=== PATIENT | male | born 1940 | race Caucasian/White ===

== ENCOUNTER 2016-12-04 05:39 | Day surgery (SDC) | payer MEDICARE, OTHER ==
[2016-12-04] MEDS ORDERED: TROP 1%/CYCLOPEN 1%/PHENYL 2% DROPS ONE (10:54)
[2016-12-04] MEDS: PROPARACAINE 0.5% OPHTH SOL 15 ML BTTL ONE ×3 (10:58→11:10)
[2016-12-04] MEDS: TOBRAMYCIN SULF 0.3 % OPHT SOL 1 DROP LEFT_EYE ONE ×2 (10:59→11:33)
[2016-12-04] MEDS ORDERED: MIDAZOLAM INJ 5 MG/5 ML VIAL ONE (11:01)
[2016-12-04] MEDS ORDERED: LIDOCAINE 1% PF 2 ML AMP INJ ONE (11:14)
[2016-12-04] MEDS ORDERED: DEXAMETHASONE 0.1% OPHTH SOL 1 DROP LEFT_EYE ONE (11:33)
[2016-12-04] MEDS ORDERED: BRIMONIDINE 0.2% OPHTH DROPS LEFT_EYE ONE (11:33)
[2016-12-04 15:42] VITALS: BP 181/80; TEMP 97.9; O2SAT 100
== END 2016-12-04 12:00 | disposition home or self-care (01) ==
LOC: AMB 05:39
PROVIDERS: ATTEND Ophthalmology
DX: H25.12 Age-related nuclear cataract, left eye (principal)
CPT/HCPCS: 66984; J2250

== ENCOUNTER 2016-12-14 05:48 | Day surgery (SDC) | payer MEDICARE, OTHER ==
[2016-12-14] MEDS ORDERED: MIDAZOLAM INJ 5 MG/5 ML VIAL ONE (08:46)
[2016-12-14] MEDS ORDERED: LIDOCAINE 1% PF 2 ML AMP INJ ONE (12:00)
[2016-12-14] MEDS: PROPARACAINE 0.5% OPHTH SOL 15 ML BTTL ONE ×2 (12:24→12:53)
[2016-12-14] MEDS: TOBRAMYCIN SULF 0.3 % OPHT SOL 1 DROP RIGHT_EYE ONE ×2 (12:25→13:11)
[2016-12-14] MEDS ORDERED: PROPARACAINE 0.5% OPHTH SOL 15 ML BTTL ONE (12:36)
[2016-12-14] MEDS ORDERED: TROP 1%/CYCLOPEN 1%/PHENYL 2% DROPS ONE (12:36)
[2016-12-14] MEDS ORDERED: PROPARACAINE 0.5% OPHTH SOL 15 ML BTTL RIGHT_EYE ONE (13:00)
[2016-12-14] MEDS ORDERED: DEXAMETHASONE 0.1% OPHTH SOL 1 DROP RIGHT_EYE ONE ×2 (13:12→13:31)
[2016-12-14] MEDS ORDERED: BRIMONIDINE 0.2% OPHTH DROPS RIGHT_EYE ONE ×2 (13:13→13:31)
[2016-12-14 13:26] VITALS: O2SAT 99
[2016-12-14 14:35] VITALS: BP 175/78; TEMP 98.6
== END 2016-12-14 14:10 | disposition home or self-care (01) ==
LOC: AMB 05:48
PROVIDERS: ATTEND Ophthalmology
DX: H25.11 Age-related nuclear cataract, right eye (principal); I10 Essential (primary) hypertension; E78.5 Hyperlipidemia, unspecified; Z79.899 Other long term (current) drug therapy
CPT/HCPCS: 66984; J2250

== ENCOUNTER → 2016-12-29 | Outpatient (CLI) | payer MEDICARE, OTHER | END | disposition home or self-care (01) | LOC: GMAJ 10:45 | PROVIDERS: ATTEND Family Medicine | DX: Z12.5 Encounter for screening for malignant neoplasm of prostate (principal) ==

== ENCOUNTER → 2017-07-25 | Outpatient (CLI) | payer MEDICARE, MEDICAID | LOC: LAB.O 13:33 | PROVIDERS: ATTEND Urology | DX: R97.20 Elevated prostate specific antigen [PSA] (principal) ==

== ENCOUNTER → 2017-08-22 | Outpatient (CLI) | payer MEDICARE, MEDICAID ==
--- NOTE | 2017-08-23 09:07 | US ---
EXAM DESCRIPTION: Extremity,Lower Ronal Arteries: Ultrasound. CLINICAL HISTORY: ATHEROSCLEROSIS OF [place] ARTERIES OF EXTREMITIES COMPARISON: None. TECHNIQUE: Doppler evaluation of the bilateral lower extremity arterial flow waveforms and velocities. FINDINGS: Arterial waveforms in the right lower extremity are triphasic in the right common femoral artery. Biphasic from the right femoral artery to the right peroneal artery. Dampened monophasic waveform in the right dorsalis pedis artery. No waveform with trace flow in the right posterior tibial artery.. Arterial waveforms in the left lower extremity are triphasic in the left common femoral artery. Biphasic in the left femoral artery and the popliteal artery. Monophasic in the left peroneal artery with dampening. Biphasic waveform in the left dorsalis pedis artery. No waveform and trace flow in the left posterior tibial artery... Comments: Velocities are symmetric down to the peroneal artery which is significantly decreased on the left. Left dorsalis pedis artery velocity is twice the value of the right artery. No measurable velocity in the bilateral posterior tibial arteries. IMPRESSION: Significant bilateral atherosclerotic occlusive disease primarily affecting the left peroneal and posterior tibial arteries and the right posterior tibial and dorsalis pedis arteries. No significantly elevated velocity indicating proximal high-grade stenosis is seen. Electronically signed by: Damián Jonas MD 08/23/2017 9:06 AM CDT
== END ==
LOC: US 09:00
PROVIDERS: ATTEND Family Medicine
DX: I70.202 Unspecified atherosclerosis of native arteries of extremities, left leg (principal)

== ENCOUNTER → 2018-01-29 | Outpatient (CLI) | payer MEDICARE, MEDICAID | LOC: GMAJ 10:35 | PROVIDERS: ATTEND Family Medicine | DX: Z12.5 Encounter for screening for malignant neoplasm of prostate (principal) ==

== ENCOUNTER 2018-11-08 05:43 | Day surgery (SDC) | payer MEDICARE, MEDICAID ==
[2018-11-08] MEDS ORDERED: LACTATED RINGERS 1,000 ML ONE (06:54)
--- NOTE | 2018-11-08 09:46 | OP ---
DATE OF PROCEDURE: 11/08/18 PREOPERATIVE DIAGNOSIS: 1. Blood in stool. No history of colonoscopy. POSTOPERATIVE DIAGNOSIS: 1. Colonic polyps times 4. PROCEDURE: 1. Colonoscopy with biopsies times 4. SURGEON: Nima Goodman MD ANESTHESIA: General. FINDINGS: There were 4 polyps, proximal transverse, distal transverse, near the hepatic flexure, probably mid to descending and at the rectosigmoid junction was the most substantial small, approximately 3.5 mm adenomatous polyp. COMPLICATIONS: None. ESTIMATED BLOOD LOSS : None. CONDITION: Stable. PLAN: Discharge. INDICATION: The patient presented to the outpatient clinic. He had never had a colonoscopy, but had a heme positive stool. He was evaluated and felt to be a good candidate with no contraindications for colonoscopy. PROCEDURE: He was consented today and brought to the Procedure Suite in the lateral position. He was made comfortable. IV general anesthesia was given with monitoring. Digital rectal exam was normal, but decreased sphincter tone. The colonoscope was then passed with minimal difficulty to the cecum which was documented by the appendiceal orifice and photos. Upon withdrawal, there were no large blood causing tumors identified. In the proximal transverse, a small polyp was noted. It was removed completely with forceps as well as one in the distal transverse. Two separate bites completely removed. There was a similar polyp in the proximal descending and at the rectosigmoid junction, a polyp that we had seen going in and now re-encountered coming out. It was a little bit larger and appeared to be an adenomatous polyp. This was excised with a hot snare and confirmed retrieval. The remainder of the exam was normal. The distal rectum appeared normal on retroflexion. Again, diminished sphincter tone, but some tone. He tolerated the procedure. He was then awakened and taken to Recovery to be discharged. #[id number] cc: Nima Shipman MD [facility]
[2018-11-08] MEDS ORDERED: LIDOCAINE 1% 10 ML VIAL INJ ONE (10:00)
[2018-11-08] MEDS ORDERED: PROPOFOL 200 MG/20 ML VIAL IV ONE (10:00)
[2018-11-08 10:06] VITALS: BP 145/79; TEMP 97.9; O2SAT 98
== END 2018-11-08 10:05 | disposition home or self-care (01) ==
LOC: AMB 05:43
PROVIDERS: ATTEND Surgery
DX: R19.5 Other fecal abnormalities (principal); D12.3 Benign neoplasm of transverse colon; K63.5 Polyp of colon; I10 Essential (primary) hypertension; E78.00 Pure hypercholesterolemia, unspecified; G89.29 Other chronic pain; M54.5 Low back pain; Z87.891 Personal history of nicotine dependence; Z79.82 Long term (current) use of aspirin; Z79.899 Other long term (current) drug therapy
CPT/HCPCS: 00811; 45380; 45385; 88305; J3490; J7120

== ENCOUNTER → 2019-01-15 | Outpatient (CLI) | payer MEDICARE, MEDICAID ==
--- NOTE | 2019-01-15 21:01 | US ---
EXAM DESCRIPTION: Carotid Duplex: ULTRASOUND. CLINICAL HISTORY: 78 years Male CAROTID ARTERY SYNDROME,(HEMISPHERIC) COMPARISON: None. TECHNIQUE: Transcutaneous scanning utilizing beebe-scale and Doppler modes to evaluate the bilateral carotid systems and vertebral arteries. Percentage of diameter of stenosis or no stenosis recorded will be based upon NASCET criteria. FINDINGS: Peak systolic/end diastolic (CM-Sec) CCA Right 116/18 Left 132/22. ICA Right proximal 92/26, distal 71/22. Left proximal 90/25, Distal 81/23. Vertebral Right 61/13 Left 30/11. ECA (PS Only) Right 2 9 left 76. ICA/CCA peak systolic ratio: Right 0.8 Left 0.7 ICA/CCA end diastolic ratio: Right 1.5 Left 1.1 Vertebral arteries: antegrade flow. Comments: Bilateral atherosclerotic calcifications in the carotid bifurcations and proximal ICAs. Right mid common carotid bulb: Area stenosis 35% and diameter stenosis 28 %. IMPRESSION: 1. Doppler evaluation of the bilateral carotid systems and vertebral arteries shows no hemodynamically significant stenoses. 2. No significant amount of plaque seen in the carotid arteries bilaterally. Bilateral vertebral arteries showed antegrade-cephalad flow. Electronically signed by: Damián Jonas MD 01/15/2019 9:00 PM CDT
== END ==
LOC: US 13:55
PROVIDERS: ATTEND Family Medicine
DX: G45.1 Carotid artery syndrome (hemispheric) (principal)